=== PATIENT | female | born 1980 | race Caucasian/White ===

== ENCOUNTER 2017-10-06 15:10 | Emergency (ER) | payer MEDICAID ==
[~2017-10-06] VITALS: Ht 165.1 cm; Wt 63.6 kg
[2017-10-06 15:14] VITALS: BP 110/69
== END 2017-10-06 16:22 | disposition home or self-care (01) ==
LOC: ED 16:16
DX: H60.91 Unspecified otitis externa, right ear (principal); N28.9 Disorder of kidney and ureter, unspecified
CPT/HCPCS: 99283

== ENCOUNTER 2017-11-25 10:24 | Emergency (ER) | payer MEDICAID ==
[~2017-11-25] VITALS: Ht 167.6 cm; Wt 63.4 kg
[2017-11-25 11:00] VITALS: BP 134/92
[2017-11-25 11:21] LABS: CULTURE INDICATED? NO; MICROSCOPIC NOT IND
[2017-11-25] MEDS ORDERED: OXYcodone/APAP 5/325MG TABLET ONE (11:52)
[2017-11-25] MEDS ORDERED: OXYcodone/APAP 5/325MG TABLET PO ONE (12:00)
== END 2017-11-25 11:58 | disposition home or self-care (01) ==
LOC: ED 11:03
DX: L03.111 Cellulitis of right axilla (principal); R30.0 Dysuria; F17.200 Nicotine dependence, unspecified, uncomplicated
CPT/HCPCS: 81003; 99283

== ENCOUNTER 2018-04-22 08:50 | Emergency (ER) | payer MEDICAID ==
[~2018-04-22] VITALS: Ht 165.1 cm; Wt 69.3 kg
[2018-04-22 08:56] VITALS: BP 118/65
== END 2018-04-22 09:40 | disposition home or self-care (01) ==
LOC: ED 09:00
DX: H60.12 Cellulitis of left external ear (principal)
CPT/HCPCS: 99283

== ENCOUNTER 2019-12-01 07:32 | Emergency (ER) | payer MEDICAID ==
[~2019-12-01] VITALS: Ht 167.6 cm; Wt 72.2 kg
[2019-12-01 07:35] VITALS: BP 117/44
== END 2019-12-01 08:24 | disposition home or self-care (01) ==
LOC: ED 08:06
DX: K02.9 Dental caries, unspecified (principal); F17.210 Nicotine dependence, cigarettes, uncomplicated
CPT/HCPCS: 99283